=== PATIENT | female | born 1995 | race Caucasian/White ===

== ENCOUNTER 2018-02-19 08:00 | Inpatient (IN) ==
[2018-02-19] MEDS ORDERED: *HR* Nalbuphine 10 MG/ML AMPUL IVP PRN (10:09)
[2018-02-19] MEDS ORDERED: Ondansetron 4 MG/2 ML VIAL IVP PRN (10:09)
[2018-02-19] MEDS ORDERED: Naloxone 0.4 MG/ML INJ IVP PRN (10:09)
[2018-02-19] MEDS ORDERED: Metoclopramide 10 MG/2 ML VIAL IVP PRN (10:09)
[2018-02-19] MEDS ORDERED: Famotidine 20 MG/2 ML VIAL IVP PRN (10:09)
[2018-02-19] MEDS ORDERED: miSOPROStol 25 MCG TABLET PO ONE (10:15)
[2018-02-19 10:28] LABS: Basophils % 0.2 %; Eosinophils # 0.1 K/mcL (0.0-0.6); Eosinophils % 0.7 %; Hemoglobin 10.6 g/dL (11.5-15.4); Immature Granulocytes % 0.3 % (0-4); Lymphocytes % 23.1 %; Mean Corpuscular HGB Conc 33.1 g/dL (31.6-35.5); Mean Corpuscular Hemoglobin 28.3 pg (28.0-33.3); Mean Corpuscular Volume 85.3 fL (83.0-100.0); Mean Platelet Volume 10.4 fL (9.4-12.4); Monocytes # 0.7 K/mcL (0.0-1.3); Monocytes % 7.6 %; Platelet Count 288 K/mcL (140-400); Red Blood Count 3.75 M/mcL (3.82-4.97); Red Cell Distribution Width 13.4 % (11.5-14.5); Segmented Neutrophils % 68.1 %
[2018-02-19 10:58] LABS: Amphetamine Screen,Urine Negative ng/mL (Cutoff=1000); Barbiturate Screen,Urine Negative ng/mL (Cutoff=200); Benzodiazepines Screen,Urine Negative ng/mL (Cutoff=200); Cannabinoid Screen,Urine Negative ng/mL (Cutoff = 50); Cocaine Screen,Urine Negative ng/mL (Cutoff= 300); Opiate Screen,Urine Negative ng/mL (Cutoff=300); Phencyclidine Screen,Urine Negative ng/mL (Cutoff=25)
[2018-02-19] MEDS ORDERED: Ringers Solution, Lactated 1,000 ML ONE (11:28)
[2018-02-19] MEDS: Ringers Solution, Lactated 1,000 ML IVC SCH ×3 (11:30→18:46)
[2018-02-19] MEDS ORDERED: *HR* FentaNYL (PF) 100 MCG/2 ML VIAL EP ONE (15:26)
[2018-02-19] MEDS ORDERED: Bupivacaine-MPF 0.25% 10 ML VIAL EP ONE (15:26)
--- NOTE | 2018-02-19 15:26 | Anesthesia Evaluation PreOp ---
Date of Encounter: 02/19/18 Time of Encounter: 15:24 - Past History Planned Operation: KP Cardiac History: Denies any Significant Hx Pulmonary History: Denies Any Significant HX TOOL/DIE MAKER History: Denies Any Significant HX Other Medical History: Other (HSV) Anesthesia History: No Prior Anesthetic Complications (KP x 1--no complications; never had any procedure requiring GA; denies family h/o GA complications) : Yes Alcohol Use: none Drug use: none Medications and Allergies Valtrex 500 mg PO BID 02/19/18 [History] Allergy/AdvReac Type Severity Reaction Status Date / Time No Known Allergies Allergy Verified 01/02/15 23:02 - Meds/Allergy Pre-op Review Medications Reviewed: Yes Allergies Reviewed: Yes Beta Blockers on Current Med List: No Anesthesia Results - Labs 02/19/18 10:00 Anesthesia Exam 124/71 O2 Sat Height 1.7 m Weight 110 kg NPO (# of Hours): solids > 8hrs Pain Scale: 6 Pain Scale Used: Numeric (1 - 10) - HEENT Pupil (Motor): Pupils equal Mallampati: I Teeth: Normal Oral Opening: Greater than 3 - TOOL/DIE MAKER LOC: Oriented TOOL/DIE MAKER Motor: Normal RUE, Normal LUE, Normal RLE, Normal LLE, Normal Face TOOL/DIE MAKER Sensory: Normal: RUE, LUE, RLE, LLE, Face - Cardiac Rhythm: Regular Murmur: None JVD: No Carotid Bruit: No - Pulmonary Breath Sounds: bilateral Clear Respiratory Effort: Symmetrical Anesthesia Assess/Plan ASA Score: 2 Level of consciousness: Cooperative, Oriented, Tranquil Anesthetic Plan: Epidural Autologous Blood: No Monitoring Plan: Standard Monitors Recovery Plan: Other
[2018-02-19] MEDS ORDERED: Lidocaine -MPF 1% 5 ML AMPUL ONE (15:29)
[2018-02-19] MEDS ORDERED: Bupivacaine-MPF 0.25% 10 ML VIAL ONE ×2 (15:29→17:57)
[2018-02-19] MEDS ORDERED: *HR* FentaNYL (PF) 100 MCG/2 ML VIAL ONE ×2 (15:30→17:58)
[2018-02-19] MEDS ORDERED: Epidural Premix (fent/bupiv) 110 ML EP SCH (15:30)
--- NOTE | 2018-02-19 16:40 | OB/GYN History & Physical ---
Date of Encounter: 02/19/18 Time of Encounter: 16:07 Assessment and Plan (1) 39 weeks gestation of Current visit: No Status: Resolved admitted for IOL Dr. Quiroz updated on POC PO Cytotec History of Present Illness Chief complaint: Scheduled IOL HPI: Ms. Wells is a 22 year old female at 39w0d for IOL that was previously discussed between Jessie and Dr. Garcia. Patient reports +FM, Reports contractions, LOF or VB. Blood type: O+ Rubella: Immune Hep B: Nonreactive GBS: Negative Past Med Surg Social Fam HX - Past Medical History Medical history: no medical history Psychiatric history: depression - Past Surgical History Surgical History: other Additional surgical history: TEETH EXTRACTION. STAPH REMOVED UNDER RIGHT ARMPIT IN 2009 - Social History Smoking Status: Never smoker Smokeless Tobacco Status: No Alcohol use: none Drug use: none - Family History Mother Name: ernie wells Age: 54 Family Member Ethnicity: Non- Living Status: Still Living Hx Family Cardiac Disorders: Yes (htn) Hx Family Respiratory Disorders: No Hx Family Cancer: No Hx Family GI Disorders: No Hx Family Genitourinary Disorders: No Hx Family Endocrine Disorder: Yes (dm) Hx Family Musculoskeletal Disorders: No Hx Family Neuromuscular Disorders: No Hx Family Neurologic Disorders: No Hx Family HEENT Disorders: No Hx Family Autoimmune Disorders: Yes (fibromialgia) Hx Family Reproductive Disorders: No Hx Family Psychosocial Disorders: No Hx Family Medical Disorders: No Obstetrical History - Pregnancies : 2 Para: 1 Term: 1 : 0 Ab's: 0 Livin Medications and Allergies Valtrex 500 mg PO BID 02/19/18 [History] Allergy/AdvReac Type Severity Reaction Status Date / Time No Known Allergies Allergy Verified 01/02/15 23:02 Review of System OB - Constitutional Constitutional ROS IM: no chills, no fever(s), no headache(s) - Cardiovascular Cardiovascular: no chest pain, no edema, no palpitations, no pedal edema, no syncope - Respiratory Respiratory: no dyspnea - Gastrointestinal Gastrointestinal: no abdominal pain, no diarrhea, no heartburn, no nausea, no vomiting - Genitourinary Genitourinary: genital lesions (condyloma on perineum), no dysuria, no flank pain, no urinary frequency, no vaginal discharge, no vaginal odor, no vaginal pruritis Exam - Constitutional Constitutional: well developed, well nourished, no acute distress, average body habitus - HEENT HEENT: Normocephaly, Mucus Membranes Moist - Neck Neck exam: full ROM, normal inspection, supple - Lungs Respiratory exam: CTAB - Cardiovascular Cardiovascular exam: RRR, +S1, +S2 - Abdomen Abdomen: Present: bowel sounds normal, gravid, non tender - Extremities Extremities exam: full ROM, normal capillary refill, normal inspection Deep Tendon Reflex Grade: 2+ Normal - Vagina Vagina: Present: normal moisture - Cervix Dilation: 3 Effacement: 60 Station: -2 - Uterus Uterus exam: Present: normal size, normal contour - Comments Comments: Condyloma noted on perineum discussed with Dr. Quiroz who recommends removal prior or during delivery. FHr 135 bpm moderate variability +15x15 accels no decels noted. Irregular contractions. Cat. 1 tracing. Results Result Diagrams: 02/19/18 10:00 Abnormal lab results RBC 3.75 M/mcL (3.82-4.97) L 02/19/18 10:00 Hgb 10.6 g/dL (11.5-15.4) L 02/19/18 10:00 Hct 32.0 % (35.3-44.9) L 02/19/18 10:00 All other labs normal. - VTE Reasons for not Prescribing Prophylaxis: Treatment not Indicated - Low risk for VTE
[2018-02-19] MEDS ORDERED: Lidocaine -MPF 2% 5 ML VIAL ONE (17:57)
[2018-02-19] MEDS ORDERED: Oxytocin 20 units/ LR 1000 mL 20 UNIT/1,000 ML BAG IVC SCH (18:00)
--- NOTE | 2018-02-19 18:31 | Anesthesia Procedures ---
Addendum entered and electronically signed by Navneet Larios CRNA 02/20/18 07:00: Infant Delivery Date: 02/19/18 Delivery Time: 23:15 Original Note: Date of Encounter: 02/19/18 Time of Encounter: 18:00 Procedures: Anesthesia - Epidural/Spinal Patient ID/Chart reviewed: Yes Patient examined: Yes OB Eval: Gestational age: 39 weeks 0 days OB Eval: : 2 OB Eval: Hx Para: 1 OB Eval: Contractions: Non-stressed pattern Consent Obtained: Yes Supplemental Oxygen: None/Room Air Site Prep: Aseptic Technique, Sterile prep and drape, Povidone-Iodine 1% Patient position: upright Local Anesthetic: Lidocaine 1% Amount of Local Anesthetic used: 5 Touhy Needle Gauge: 18 Touhy Needle Depth (cm): 7 Catheter Depth at Skin (cm): 13 Test Dose (1.5% Lido + Epi): Volume given (mls): 5 Test Dose Result: Negative Loading Dose: 0.25% Marcaine (mls): 5 Loading Dose: Fentanyl (mcg): 100 Loading Dose Administered: Thru Catheter Infusion Med: 0.125% Bupivacaine w/ 2 mcg/ml Fentanyl Infusion Rate (mls/hr): 15 (demand bolus of 6mL q30min PRN) Catheter Secured in Place: Tegaderm, Tape Interspace Used: L3-L4 Loss of Resistance (GOMEZ): Yes Blood: No CSF: No Paresthesia: No Procedure: successful on 1st attempt; patient tolerated procedure well; VSS Vitals + FHT's: please see Odalys YA's electronic record for VS entry
[2018-02-19] MEDS ORDERED: Lidocaine/EPI 1:200k 1% PF 10 ML VIAL INFILT ONE (20:46)
[2018-02-19] MEDS ORDERED: Lidocaine/EPI 1:200k 1% PF 10 ML VIAL ONE (20:49)
--- NOTE | 2018-02-20 00:02 | OB/GYN Procedure Note ---
Delivery - Delivery Date: 02/19/18 Provider: Moira Baker Intrapartum events: none Delivery induction: oxytocin, misoprostol Delivery augmentation: rupture of membranes Delivery monitor: external FHT, external uterine Anesthesia: epidural Quantitated Blood Loss: 200 - Infant (s) A Infant Delivery Date: 02/19/18 Delivery Time: 23:15 Presentation: vertex Position: OA Route of delivery: Gender: Female Viability: Viable Pounds: 8 Ounces: 2 Weight Gram: 3.695 kg at 1 minute: 8 at 5 mins: 9 Shoulder Dystocia: not encountered Specimens collected: cord blood Placenta: spontaneous, uterine exploration Cord: 3 umbilical vessels - Repair Episiotomy: none Laceration Description: Superficial (on stitch) - Complications Delivery complications: none - Disposition Mom disposition: stable in LDR [place] disposition: stable in LDR - Comments Comments: Called to LDR for delivery. Patient complete and feeling pressure. Patient placed in stirrups and prepped for vaginal delivery. Under maternal effort patient spontaneously delivered a viable female infant over an intact perineum. NO shoulder dystocia, meconium or nuchal cord was encountered. was placed on maternal abdomen. Cord was clamped and cut after pulsations ceased. Cord blood was then collected along with a [address] Quiroz was called to delivery room to evaluate the Condyloma and decision was made not to remove at this time due to the extension of them. A single stitch was placed to stop blee ding from a superficial laceration between the Condyloma. Placenta was then delivered spontaneously and visually intact. Placenta appeared calcified and was sent to pathology. Pericare provided, all counts correct. Both mother and stable in LDR for 2 hour recovery.
[2018-02-20] MEDS ORDERED: Benzocaine/Menthol 56 GM AEROSOL SPRAY TP PRN (02:53)
[2018-02-20] MEDS ORDERED: Oxytocin 20 units/ LR 1000 mL 20 UNIT/1,000 ML BAG IVC SCH (02:53)
[2018-02-20] MEDS ORDERED: Measles/Mumps/Rubella Vacc 0.5 ML VIAL SQ PRN (02:53)
[2018-02-20] MEDS ORDERED: Acetaminophen 325 MG TABLET PO PRN (02:53)
[2018-02-20] MEDS: Prenatal Vit/FA 1 EACH TABLET PO SCH (08:12)
[2018-02-20] MEDS: Ibuprofen 600 MG TABLET PO PRN ×3 (08:12→22:32)
--- NOTE | 2018-02-20 12:00 | OB/GYN Progress Note ---
Date of Encounter: 02/20/18 Time of Encounter: 11:59 - Assessment and Plan (1) Vaginal delivery Current Visit: Yes Status: Acute Pt meeting PPD1 milestones. Plan for discharge home in am. Subjective - Subjective Patient reports: appetite normal, voiding normally, pain well controlled, ambulating normally : doing well, bottle feeding Objective - Latest Vital Signs Latest vital signs: Vital Signs Temp Pulse Pulse Resp BP Pulse Ox 02/20/18 08:15 98.1 F 82 16 118/78 96 02/20/18 03:00 97.9 F 76 76 16 119/82 02/20/18 02:20 97.6 F 78 70 14 128/79 98 Intake and Output 02/19/18 02/20/18 02/20/18 23:59 07:59 15:59 Intake Total 1000 / 1000 Output Total 800 / 800 800 / 800 Balance 200 / 200 -800 / -800 Intake: IV Fluids 1000 / 1000 Lactated Ringers 1,000 ML @ 125 1000 / 1000 mls/hr IVC .Q8H [facility] Rx#: [id number] Output: Urine 800 / 800 Catheter 800 / 800 Other: Weight 107.2 kg Patient Weight 02/20/18 23:59 Weight 107.2 kg - Exam Lungs: bilateral: normal Chest: Normal S1, Normal S2 Extremities: Present: normal Abdomen: Present: soft Uterus: Present: firm Uterus Position: 1 Finger Below Umbilicus
[2018-02-21] MEDS: Ibuprofen 600 MG TABLET PO PRN (07:58)
[2018-02-21 08:07] VITALS: BP 122/79
[2018-02-21] MEDS: Prenatal Vit/FA 1 EACH TABLET PO SCH (08:59)
--- NOTE | 2018-02-21 09:20 | Discharge Summary ---
Date of Encounter: 02/21/18 Time of Encounter: 09:18 - Discharge Diagnosis (1) Vaginal delivery Priority: Primary Status: Acute Comments: Pt meeting PP milestones. Discharge home today. - Discharge Medications Prescriptions: Ibuprofen [Motrin] 600 mg PO Q6HR PRN #30 tablet PRN Reason: Cramping Docusate [Colace] 100 mg PO BID #30 capsule Home Medications: Benzocaine/Menthol Mer[place] [Dermoplast Merced] 1 appl TP QID PRN aerosol 02/21/18 [Rx] Docusate [Colace] 100 mg PO BID #30 capsule 02/21/18 [Rx] Ibuprofen [Motrin] 600 mg PO Q6HR PRN #30 tablet 02/21/18 [Rx] Vit/FA 1 each PO DAILY tablet 02/21/18 [Rx] Allergies/Adverse Reactions: Allergy/AdvReac Type Severity Reaction Status Date / Time No Known Allergies Allergy Verified 01/02/15 23:02 Data Procedures and tests throughout hospitalization: Laboratory Tests 02/19/18 02/19/18 02/19/18 10:00 10:00 10:00 WBC 8.9 RBC 3.75 L Hgb 10.6 L Hct 32.0 L MCV 85.3 MCH 28.3 MCHC 33.1 RDW 13.4 Plt Count 288 MPV 10.4 Immature Gran % 0.3 Seg Neutrophils % 68.1 Lymphocytes % 23.1 Monocytes % 7.6 Eosinophils % 0.7 Basophils % 0.2 Neutrophils # 6.0 Lymphocytes # 2.0 Monocytes # 0.7 Eosinophils # 0.1 Basophils # 0.0 Urine Opiates Screen Negative Ur Barbiturates Screen Negative Ur Phencyclidine Scrn Negative Ur Amphetamines Screen Negative U Benzodiazepines Scrn Negative Urine Cocaine Screen Negative U Marijuana (THC) Screen Negative Ur Drug Screen Interp See Below Blood Type O POSITIVE Date of admission: 02/19/18 09:30 Primary care physician: Dina Faulkner CNP Discharging clinician: Jessie Mcmahon Anticipated date of discharge: 02/21/18 - Patient Status Disposition: Home, Self-Care Condition: Good Functional capacity at discharge: independent ambulation Overall status at discharge: patient is progressing back to baseline - Discharge Instructions Follow Up With: Dina Faulkner CNP [Primary Care Provider] - Moira Baker CNM [Non-Partnered Physician] - - Diet and Activity Activity: increase activity as tolerated Diet: regular diet Hospital Course Reason for admission: induction of labor Delivery: Episiotomy: none Laceration: 1st degree Other procedures: none complications: none Discharge diagnosis: IUP at term delivered [place] baby: female Hospital course: - Delivery Date: 02/19/18 Provider: Moira Baker Intrapartum events: none Delivery induction: oxytocin, misoprostol Delivery augmentation: rupture of membranes Delivery monitor: external FHT, external uterine Anesthesia: epidural Quantitated Blood Loss: 200 - Infant (s) A Delivery Date: 02/19/18 Delivery Time: 23:15 Presentation: vertex Position: OA Route of delivery: Gender: Female Viability: Viable Pounds: 8 Ounces: 2 Weight Gram: 3.695 kg at 1 minute: 8 at 5 mins: 9 Shoulder Dystocia: not encountered Specimens collected: cord blood Placenta: spontaneous, uterine exploration Cord: 3 umbilical vessels - Repair Episiotomy: none Laceration Description: first degree - Complications Delivery complications: none - Disposition Mom disposition: home PPD2 [place] disposition: home with mother, bottle feeding Time Attestation: Total time spent providing and/or coordinating discharge services: Time Spent: Less than 30 minutes Exam - Constitutional Vitals: Temp Pulse Resp BP Pulse Ox 99.0 F 109 14 122/79 96 02/21/18 08:05 02/21/18 08:05 02/21/18 08:05 02/21/18 08:05 02/21/18 08:05 General appearance IM: A&O X 3, no acute distress - Respiratory Respiratory exam: Present: CTAB - Cardiovascular Cardiovascular exam IM: Present: RRR - GI/Abdominal GI/Abdominal exam IM: soft - Uterine Tone: Firm Uterus Position: 2 Fingers Below Umbilicus - Extremities Exam Extremities exam IM: Present: normal inspection - Neurological Exam Neurological exam: normal gait, oriented X3 - Psychiatric Additional comments: reports good mood, considering depo provera for contraception
== END 2018-02-21 12:35 | disposition home or self-care (01) | DRG 560 ==
LOC: 1NENULAB 09:30 → 1NENUOBS 02-20 02:16
PROVIDERS: ADMIT Advanced Practice Midwife; ATTEND Advanced Practice Midwife